=== PATIENT | male | born 1965 | race Caucasian/White ===

== ENCOUNTER 2020-05-16 06:03 | Emergency (ER) | payer BC, SELFPAY ==
[~2020-05-16] VITALS: Ht 190.5 cm; Wt 88.5 kg
--- NOTE | 2020-05-16 06:17 | NUR ---
pt came into the ed this am for c/o low back pain on the left side, denies burning on urination but states "i have a history of gout and am worried i have a kidney stone", pt resting on gurney, bed in lowest, rails engaged, call light on lap, placed on spo2/bp monitoring, provided warm blankets for comfort, waiting for erp patty guzman.
[2020-05-16] MEDS ORDERED: KETOROLAC 30 MG/1 ML IM ONE (06:30)
[2020-05-16] MEDS ORDERED: METHOCARBAMOL 750 MG TABLET PO ONE (06:30)
[2020-05-16] MEDS ORDERED: KETOROLAC 60 MG/2 ML ONE (06:32)
[2020-05-16] MEDS ORDERED: METHOCARBAMOL 750 MG TABLET ONE (06:32)
--- NOTE | 2020-05-16 06:40 | NUR ---
pt medicated per may, ua collected and sent to lab, pt resting on bon, nad, no change in condition, wctm.
[2020-05-16 06:49] LABS: MICROSCOPIC NOT IND
--- NOTE | 2020-05-16 07:05 | NUR ---
REPORT TO ADELITA MORALES, PT CARE TRANSFERRED AT THIS TIME
[2020-05-16] MEDS ORDERED: ONDANSETRON ODT 4 MG ONE (07:50)
[2020-05-16] MEDS ORDERED: HYDROmorphone 1 MG/ML, 1ML INJ ONE (07:50)
[2020-05-16 07:53] VITALS: BP 104/74
[2020-05-16] MEDS ORDERED: HYDROmorphone 1 MG/ML, 1ML INJ IM ONE (08:00)
[2020-05-16] MEDS ORDERED: ONDANSETRON ODT 4 MG PO ONE (08:00)
--- NOTE | 2020-05-16 08:28 | NUR ---
PT REC'VD DISCHARGE INSTRUCTIONS AND EDUCATION. PT HAD NO QUESTIONS. PT AMBULATED TO DC AREA, STEADY GAIT.
== END 2020-05-16 08:30 | disposition home or self-care (01) ==
LOC: ED 08:08
DX: S39.012A Strain of muscle, fascia and tendon of lower back, initial encounter (principal); F17.200 Nicotine dependence, unspecified, uncomplicated; X58.XXXA Exposure to other specified factors, initial encounter; Y93.89 Activity, other specified; Y92.89 Other specified places as the place of occurrence of the external cause; Y99.8 Other external cause status
CPT/HCPCS: 81003; 96372; 99284; J1170; J1885; Q0162